=== PATIENT | female | born 2005 | race Caucasian/White ===

== ENCOUNTER 2025-07-05 02:08 | Emergency (ER) | payer OTHER ==
[~2025-07-05] VITALS: Ht 175.3 cm; Wt 67.6 kg
[2025-07-05] MEDS ORDERED: PHENYLEPHRINE 0.5% NASAL SPRAY 15 ML BOTTLE NS ONE (04:23)
[2025-07-05] MEDS ORDERED: PHENYLEPHRINE 1% NASAL SPRAY 15 ML BOTTLE NS PRN (04:30)
[2025-07-05 05:28] VITALS: BP 132/80; TEMP 98.2; O2SAT 98
== END 2025-07-05 05:29 | disposition home or self-care (01) ==
LOC: ER 02:12
DX: R04.0 Epistaxis (principal); Z60.2 Problems related to living alone